=== PATIENT | male | born 1965 | race Caucasian/White ===

== ENCOUNTER 2018-06-11 10:54 | Emergency (ER) | payer MEDICARE, MEDICAID ==
[~2018-06-11] VITALS: Ht 172.7 cm; Wt 65.0 kg
[~2018-06-11 10:54] MED LIST: ACET167L14 PO; CALC-25 MT; CHLO4TAB PO; CHOL100044 MT; CITA40TA11 MT; DIVA-75 PO; DOCU250C89 PO; FISH1CAP34 PO; FIXODENT; KETO120S3 TP; LACT-247 PO; LEVO330T PO; LURA80TA PO; MOM MT; POLY250017 MT; PREG150C PO; PREG75CA MT; QUET200T29 MT; SELENIUM 2.5%; SIMV20TA6 PO; [UNRECOGNIZED DRUG - CODE] TP
[2018-06-11 11:02] VITALS: BP 104/57
[2018-06-11] MEDS ORDERED: ACETAMINOPHEN 325MG TABLET PO ONE (12:30)
== END 2018-06-11 14:14 | disposition home or self-care (01) ==
LOC: ER 10:54
DX: M25.551 Pain in right hip (principal); M54.5 Low back pain; F32.9 Major depressive disorder, single episode, unspecified; F31.9 Bipolar disorder, unspecified; F20.9 Schizophrenia, unspecified; W01.0XXA Fall on same level from slipping, tripping and stumbling without subsequent striking against object, initial encounter; Y93.66 Activity, soccer; Y92.89 Other specified places as the place of occurrence of the external cause; Y99.8 Other external cause status; Z79.899 Other long term (current) drug therapy; Z98.890 Other specified postprocedural states
CPT/HCPCS: 73502; 99283